=== PATIENT | male | born 1990 | race Asian ===

== ENCOUNTER 2020-05-16 18:25 | Emergency (ER) | payer OTHER ==
[~2020-05-16] VITALS: Ht 162.6 cm; Wt 72.7 kg
[2020-05-16 19:35] VITALS: BP 130/89
== END 2020-05-16 20:30 | disposition home or self-care (01) ==
LOC: EMS 18:25
DX: U07.1 COVID-19 (principal)
CPT/HCPCS: 99283; U0003